=== PATIENT | female | born 1990 | race Caucasian/White ===

== ENCOUNTER 2019-05-02 16:36 | Emergency (ER) | payer OTHER ==
[2019-05-02 16:50] VITALS: TEMP 98.5; BMI 24.3
--- NOTE | 2019-05-02 17:11 | PDOC ---
Rapid Medical Evaluation Chief Complaint: Vaginal Bleeding Time Seen by Provider: 05/02/19 17:06 Medical Evaluation: Allergies Allergy/AdvReac Type Severity Reaction Status Date / Time No Known Allergies Allergy Verified 05/02/19 16:47 Vital Signs Temp Pulse Resp BP Pulse Ox 98.5 F 88 16 105/55 L 98 05/02/19 16:47 05/02/19 16:47 05/02/19 16:47 05/02/19 16:47 05/02/19 16:47 05/02/19 17:10 Pt c/o: vag bleeding and cramping x 2 days, did home preg which was + Pt on brief exam: vss, mild mid suprapubic tenderness Pt ordered for: labs, urine Pt to proceed to the ED Discharge Disposition - Diagnosis Threatened - Referrals - Patient Instructions - Post Discharge Activity
--- NOTE | 2019-05-02 18:07 | PDOC ---
History of Present Illness - General Chief Complaint: Vaginal Bleeding Stated Complaint: VAGINAL BLEEDING Time Seen by Provider: 05/02/19 17:06 - History of Present Illness Initial Comments: 05/02/19 18:07 28f A1 last menstrual period March 09, positive at home. Was supposed to get OBGYN follow up but appointment was canceled. Had some spotting 2 days ago and some mild pain but some amount of blood today. Past History - Past Medical History Allergies/Adverse Reactions: Allergies Allergy/AdvReac Type Severity Reaction Status Date / Time No Known Allergies Allergy Verified 05/02/19 16:47 Home Medications: Ambulatory Orders NK [No Known Home Medication] 05/02/19 COPD: No - Immunization History Immunization Up to Date: Yes - Suicide/Smoking/Psychosocial Hx Smoking History: Never smoked Have you smoked in the past 12 months: No Information on smoking cessation initiated: No Hx Alcohol Use: No Drug/Substance Use Hx: No Review of Systems - Review of Systems Able to Perform ROS?: Yes Is the patient limited Tuvaluan proficient: No Constitutional: No: Symptoms Reported HEENTM: No: Symptoms Reported Respiratory: No: Symptoms reported Cardiac (ROS): No: Symptoms Reported ABD/GI: No: Symptoms Reported : No: Symptoms Reported Musculoskeletal: No: Symptoms Reported Integumentary: No: Symptoms Reported Neurological: No: Symptoms reported All Other Systems: Reviewed and Negative *Physical Exam - Vital Signs Last Vital Signs Temp Pulse Resp BP Pulse Ox 98.5 F 88 16 105/55 L 98 05/02/19 16:47 05/02/19 16:47 05/02/19 16:47 05/02/19 16:47 05/02/19 16:47 - Physical Exam General Appearance: Yes: Nourished, Appropriately Dressed. No: Apparent Distress HEENT: positive: EOMI, FRED, Normal ENT Inspection Respiratory/Chest: positive: Lungs Clear, Normal Breath Sounds. negative: Chest Tender, Respiratory Distress Cardiovascular: positive: Regular Rhythm, Regular Rate, S1, S2 Female Pelvic Exam: positive: normal external exam, cervical os closed, normal adnexa, normal size ovaries, discharge (leukorrhea). negative: CMT, adnexal tenderness Gastrointestinal/Abdominal: positive: Normal Bowel Sounds, Flat, Soft. negative : Tender Musculoskeletal: positive: Normal Inspection. negative: CVA Tenderness Extremity: positive: Normal Capillary Refill, Normal Inspection, Normal Range of Motion Integumentary: positive: Normal Color, Dry, Warm Neurologic: positive: informatics manager II-XII NML intact, Fully Oriented, Alert, Normal Mood/ Affect, Normal Response, Motor Strength 01/13 ED Treatment Course - LABORATORY CBC & Chemistry Diagram: 05/02/19 18:10 05/02/19 18:10 - RADIOLOGY Radiology Studies Ordered: Category Date Time Status <14WKS US [US] Stat Ultrasound 05/02/19 17:56 Ordered Medical Decision Making - Medical Decision Making 05/02/19 18:32 28f A1, no care or follow up for this yet. BetaHCG and TVUS pending to evaluate status and viability of . Benign pelvic exam, no suspicion for PID, low risk for ectopic as the patient is not in pain or tender. TVUS pending 05/02/19 19:01 Patient signed out to Dr. Naylor *DC/Admit/Observation/Transfer Diagnosis at time of Disposition: Threatened - Referrals - Patient Instructions - Post Discharge Activity
[2019-05-02 18:40] LABS: BASO % 0.5 % (0-2.0); EOS % 2.2 % (0-4.5); HEMATOCRIT 37.4 % (32.4-45.2); HEMOGLOBIN 12.8 GM/dL (10.7-15.3); LYMPH % 20.6 % (8-40); MCH 30.6 pg (25.7-33.7); MCHC 34.2 g/dl (32.0-36.0); MEAN CELL VOLUME 89.6 fl (80-96); MEAN PLT VOLUME 8.2 fl (7.5-11.1); MONO % 8.1 % (3.8-10.2); NEUT % 68.6 % (42.8-82.8); PLATELET COUNT 280 K/MM3 (134-434); RBC 4.17 M/mm3 (3.60-5.2)
[2019-05-02 19:15] LABS: ALBUMIN 3.8 g/dl (3.4-5.0); ALK PHOS 98 U/L (45-117); ANION GAP 8 MMOL/L (8-16); BILIRUBIN,TOTAL 0.7 mg/dL (0.2-1); BLOOD UREA NITROGEN 9.2 mg/dL (7-18); CALCIUM 9.2 mg/dL (8.5-10.1); CHLORIDE 104 mmol/L (98-107); CO2 25 mmol/L (21-32); CREATININE 0.7 mg/dL (0.55-1.3); GLUCOSE,RANDOM 77 mg/dL (74-106); POTASSIUM 4.1 mmol/L (3.5-5.1); SGOT/AST 14 U/L (15-37); SGPT/ALT 25 U/L (13-61); SODIUM 137 mmol/L (136-145); TOT PROT 7.8 g/dl (6.4-8.2)
[2019-05-02 20:03] LABS: EPI CELLS 11.1 /HPF (0-5/HPF); HYALINE CASTS 11 /lpf (0-8); URINE APPEARANCE CLEAR; URINE BACTERIA 257.8 /hpf (NEGATIVE); URINE BILIRUBIN NEGATIVE (NEGATIVE); URINE COLOR YELLOW; URINE GLUCOSE (UA) NEGATIVE (NEGATIVE); URINE KETONE NEGATIVE (NEGATIVE); URINE LEUK ESTERASE 3+ (NEGATIVE); URINE NITRITE NEGATIVE (NEGATIVE); URINE PROTEIN NEGATIVE (NEGATIVE); URINE RBC 2 /hpf (0-4); URINE WBC 38 /hpf (0-5)
--- NOTE | 2019-05-02 20:07 | PDOC ---
*Physical Exam - Vital Signs Last Vital Signs Temp Pulse Resp BP Pulse Ox 98.5 F 88 16 105/55 L 98 05/02/19 16:47 05/02/19 16:47 05/02/19 16:47 05/02/19 16:47 05/02/19 16:47 ED Treatment Course - LABORATORY CBC & Chemistry Diagram: 05/02/19 18:10 05/02/19 18:10 - ADDITIONAL ORDERS Additional order review: Laboratory Results 05/02/19 18:10 Sodium 137 Potassium 4.1 Chloride 104 Carbon Dioxide 25 Anion Gap 8 BUN 9.2 Creatinine 0.7 Est GFR (CKD-EPI)AfAm 135.70 Est GFR (CKD-EPI)NonAf 117.08 Random Glucose 77 Calcium 9.2 Total Bilirubin 0.7 AST 14 L ALT 25 Alkaline Phosphatase 98 Total Protein 7.8 Albumin 3.8 Beta HCG, Quant > 193171.0 05/02/19 18:10 RBC 4.17 MCV 89.6 MCHC 34.2 RDW 16.0 H MPV 8.2 Neutrophils % 68.6 Lymphocytes % 20.6 Monocytes % 8.1 Eosinophils % 2.2 Basophils % 0.5 Medical Decision Making - Medical Decision Making Pt was signed out to me by resident Dr. Kennedy, who explained the presentation, ED course, any pending results, and needed interventions. Pending results include US results and UA. Pt is currently stable and is lying comfortably. 05/02/19 20:02 US showed twins with good movement and HRs. Third empty gestational sac, to be followed outpatient with OB. 05/02/19 20:05 Treating UTI with keflex, sent additional to pt pharmacy. Provided referral for outpatient OB f/u. Return precautions for pain and bleeding provided. 05/02/19 20:11 *DC/Admit/Observation/Transfer Diagnosis at time of Disposition: Threatened Twin gestation in first trimester Qualifiers: Multiple gestation type: unspecified Qualified Code(s): O30.001 - Twin , unspecified number of placenta and unspecified number of amniotic sacs, first trimester - Discharge Dispostion Disposition: HOME Condition at time of disposition: Good Decision to Admit order: No - Prescriptions Prescriptions: Cephalexin Monohydrate [Keflex -] 500 mg PO BID #14 capsule - Referrals Referrals: Sushant Camejo MD [Staff Physician] - - Patient Instructions Printed Discharge Instructions: DI for Threatened , Multiple Pregnancies Additional Instructions: You were seen in the ER today for vaginal bleeding during . The results of your labs and imaging today were normal and showed twins in the ultrasound. Please follow-up with your primary care doctor and OB within 1-2 days to discuss your visit and make sure your symptoms have improved. Please return to the ER if you have any worsening pain, bleeding that soaks through 1- 2 pads per hour, development of fevers or chills, loss of consciousness, inability to tolerate food or fluids, or any other concerns. - Post Discharge Activity
[2019-05-02] MEDS ORDERED: CEPHALEXIN MONOHYDRATE 500 MG CAPSULE (UD) PO ONE (20:10)
[2019-05-02] MEDS ORDERED: CEPHALEXIN MONOHYDRATE 500 MG CAPSULE (UD) ONE (20:16)
[2019-05-02 20:21] VITALS: BP 108/60; PULSE 70
== END 2019-05-02 20:20 | disposition home or self-care (01) ==
LOC: JER 16:36
DX: O20.0 Threatened abortion (principal); O23.41 Unspecified infection of urinary tract in pregnancy, first trimester; O30.001 Twin pregnancy, unspecified number of placenta and unspecified number of amniotic sacs, first trimester; Z3A.00 Weeks of gestation of pregnancy not specified
CPT/HCPCS: 36415; 76801-TC; 80053; 81003; 84702; 85025; 86850; 86900; 86901; 87086; 99282-25

== ENCOUNTER 2022-09-13 17:27 | Emergency (ER) | payer OTHER ==
[2022-09-13 17:40] VITALS: TEMP 98.2; BMI 28.3
[2022-09-13 20:54] LABS: BASO % 0.3 % (0-2.0); EOS % 0.3 % (0-4.5); HEMATOCRIT 43.4 % (32.4-45.2); HEMOGLOBIN 14.1 GM/dL (10.7-15.3); LYMPH % 14.8 % (8-40); MCH 30.3 pg (25.7-33.7); MCHC 32.5 g/dl (32.0-36.0); MEAN CELL VOLUME 93.3 fl (80-96); MEAN PLT VOLUME 7.7 fl (7.5-11.1); MONO % 5.2 % (3.8-10.2); NEUT % 79.4 % (42.8-82.8); PLATELET COUNT 386 10^3/uL (134-434); RBC 4.65 M/mm3 (3.60-5.2); RDW 14.5 % (11.6-15.6); WHITE BLOOD COUNT 12.2 K/mm3 (4.0-10.0)
[2022-09-13 21:04] LABS: INR 0.95 (0.83-1.09); PROTHROMBIN TIME (PATIENT) 10.9 SEC (9.7-13.0)
[2022-09-13 21:06] LABS: ACTIVATED PTT 27.8 SECONDS (25.2-36.5)
[2022-09-13 21:19] LABS: ALBUMIN 4.2 g/dl (3.4-5.0); BLOOD UREA NITROGEN 14.3 mg/dL (7-18); CALCIUM 9.9 mg/dL (8.5-10.1)
[2022-09-13 21:24] LABS: BILIRUBIN,TOTAL 0.7 mg/dL (0.2-1); TOT PROT 8.8 g/dl (6.4-8.2)
[2022-09-13] MEDS ORDERED: LACTATED RINGERS SOLUTION 1000 ML INFUS.BAG IV ONE (21:54)
[2022-09-13] MEDS ORDERED: ACETAMINOPHEN 325 MG TABLET (FP) PO ONE (23:33)
[2022-09-13] MEDS ORDERED: ACETAMINOPHEN 325 MG TABLET (FP) ONE (23:54)
[2022-09-14 01:37] VITALS: BP 120/77; PULSE 88; RESP 18
[2022-09-14 02:16] LABS: EPI CELLS 29 /uL (0-25.1); HYALINE CASTS 1 /uL (0-3.1); URINE APPEARANCE CLOUDY; URINE BACTERIA 296 /uL (0-1359); URINE BILIRUBIN NEGATIVE (NEGATIVE); URINE COLOR YELLOW; URINE GLUCOSE (UA) NEGATIVE (NEGATIVE); URINE KETONE NEGATIVE (NEGATIVE); URINE LEUK ESTERASE 1+ (NEGATIVE); URINE NITRITE NEGATIVE (NEGATIVE); URINE PROTEIN NEGATIVE (NEGATIVE); URINE RBC 23 /uL (0-23.9); URINE UROBILINOGEN 0.2 mg/dL (0.2-1.0); URINE WBC 153 /uL (0-25.8)
== END 2022-09-14 01:37 | disposition home or self-care (01) ==
LOC: JER 17:27
DX: R07.9 Chest pain, unspecified (principal)
CPT/HCPCS: 0241U-QW; 36415; 71046-TC-FY; 71275-TC; 80053; 81003; 84443; 84484; 84703; 85025; 85379; 85610; 85730; 86850; 86900; 86901; 87086; 93005; 93010; 99285-25; Q9967